=== PATIENT | female | born 1985 | race Caucasian/White ===

== ENCOUNTER 2018-10-04 18:46 | Emergency (ER) | payer BC ==
[~2018-10-04] VITALS: Ht 160 cm; Wt 56.7 kg
[2018-10-04] MEDS ORDERED: AMPH10TA4 PO (19:00)
--- NOTE | 2018-10-04 19:30 | NUR ---
[facility] to ER, from urgent care; seeking treatment for UTI; however, she had a syncopal episode while the the urgent care. PT AAOX4, VSS. DENIES CP, SOB, N/V, NUMBNESS/TINGLING ON ALL EXTREMITIES. PT SEEN & EVAL'D BY DR. PRITCHARD. PT AMB TO RESTROOM, [facility] WE[facility]. URINE COLLECTED & SENT TO LAB. WILL CONT TO MONITOR.
--- NOTE | 2018-10-04 20:02 | NUR ---
Patient discharged to home in stable condition. Written and verbal after care instructions given. Patient verbalizes understanding of instruction. IV removed. Catheter intact and site benign. Pressure and 4x4 applied to site. No bleeding noted.
[2018-10-04 20:03] VITALS: BP 105/56
== END 2018-10-04 20:04 | disposition home or self-care (01) ==
LOC: ER 18:50
DX: N39.0 Urinary tract infection, site not specified (principal); R55 Syncope and collapse; F17.200 Nicotine dependence, unspecified, uncomplicated; Z98.890 Other specified postprocedural states; Z60.2 Problems related to living alone
CPT/HCPCS: 87086-TC; 87186-TC